=== PATIENT | male | born 1990 | race African-American/Black ===

== ENCOUNTER 2020-10-17 10:34 | Emergency (ER) | payer BC, SELFPAY ==
--- NOTE | ~2020-10-17 | XR_ITS ---
EXAMINATION: XR chest 1V portable DATE: 10/17/2020 10:57 INDICATION: COVID positive. 3 days of amputations. TECHNIQUE: frontal view of the chest was obtained. COMPARISON: None FINDINGS: The lungs are clear with no focal airspace opacities, pulmonary edema, pleural effusion or pneumothor ax. The cardiomediastinal silhouette is normal. Visualized bones and soft tissues are unremarkable. IMPRESSION: 1. No acute cardiopulmonary disease. Reviewed, dictated and finalized at location A. [facility]
--- NOTE | 2020-10-17 10:37 | ED.ARRPALP ---
HPI - Arrhythmia/Palpitations General Chief Complaint: Arrhythmia/Palpitations Stated Complaint: covid positive, heart palpitations, chest pain Time Seen by Provider: 10/17/20 10:37 History of Present Illness HPI narrative: Previously healthy 30 yo male preents to the ED for chest pain and palitations. He reports that he has not been feeling well for about 1 week. He had a positive COVID-19 test a few days ago. Now for the past few days he has been experiencing intermittent chest pressure and palpitations. The pressure is mild. Not exertional. The palpitations feel like racing. No SOB, dizziness, weakness. Related Data Allergies Allergy/AdvReac Type Severity Reaction Status Date / Time No Known Allergies Allergy Verified 10/17/20 10:43 Review of Systems Review of Systems: All systems reviewed & are unremarkable except as noted in HPI and below Constitutional: Constitutional: Denies chills, Denies fever(s) and Denies weakness ENT: Denies dizziness and Denies sore throat Cardiovascular: Cardiovascular: Reports chest pain and Reports rapid heart rate Respiratory: Respiratory: Reports chest congestion, Reports cough and Denies dyspnea Gastrointestinal: Gastrointestinal: Denies abdominal pain Musculoskeletal: Musculoskeletal: Reports myalgias Neurologic: Denies confusion, Denies numbness and Denies weakness [facility] Past Medical History Medical History (Updated 10/19/20 @ 14:46 by Chauncey Knott MD) Healthy adult male Social History Social History (Updated 10/19/20 @ 14:47 by Chauncey Knott MD) Smoking status: Never smoker Gender identity (if verbalized by the patient): Male Exam Const: General: healthy appearing, no acute distress and alert Orientation/consciousness: patient oriented x3 HENMT: Head: normal to inspection Neck: Neck: normal visual inspection and no lymphadenopathy Chest: Chest palpation & inspection: no tenderness Resp: Effort & Inspection: normal respiratory effort Auscultation: clear to auscultation bilaterally, no rales, no rhonchi and no wheezes Cardio: Jugular venous distension: no JVD Rate: regular rate Rhythm: regular rhythm Heart sounds: no murmurs GI: Inspection: non-distended GI Palp: Yes Soft to palpation and No Tenderness to palpation present (GI) Skin: General skin exam: normal color Neuro: General: patient oriented x3 and moves all extremities Speech: normal speech Extrem: General: no edema Psych: Appearance: well kempt Affect: Anxious affect present Course Vital Signs Vital signs: Vital Signs Temperature 36.9 C 10/17/20 10:39 Pulse Rate 100 10/17/20 10:39 Respiratory Rate 20 10/17/20 10:39 Blood Pressure 179/102 H 10/17/20 10:39 Pulse Oximetry 100 10/17/20 10:39 Temperature 36.9 C 10/17/20 10:39 Pulse Rate 76 10/17/20 11:46 Respiratory Rate 20 10/17/20 11:46 Blood Pressure 139/91 H 10/17/20 11:46 Pulse Oximetry 97 10/17/20 11:46 MDM - Arrhythmia/Palpitations Differential Diagnosis Differential diagnosis: Likely palpitations, anxiety and artial fibrillation Medical Records Attestation: I reviewed the patient's medical records. Lab Data Attestation: I reviewed the patient's lab results. Result diagrams: 10/17/20 10:53 10/17/20 10:53 Labs: Lab Results 10/17/20 10/17/20 Range/Units 10:53 10:53 WBC 6.3 (4.5-10.0) K/mm3 RBC 5.68 (4.6-6.20) M/mm3 Hgb 16.3 (14.0-18.0) g/dL Hct 49.2 (42.0-52.0) % MCV 86.6 (80-100) fl MCH 28.7 (26-34) pg MCHC 33.1 (32-36) g/dl RDW 12.6 (11.5-14.5) % Plt Count 216 (150-375) k/mm3 MPV 9.8 (7.4-10.4) fl Immature Gran % (Auto) 0.2 (0-0.5) % Neut % (Auto) 42.1 L (45.5-73.1) % Lymph % (Auto) 48.6 H (18.3-44.2) % Gila % (Auto) 7.8 (2.6-8.5) % Eos % (Auto) 1.1 (0-4.4) % Baso % (Auto) 0.2 (0.2-1.2) % Lymph # (Auto) 3.06 (0.9-3.2) K/mm3 Gila # (Auto) 0.5 (0.1-0.6) K/mm3 E
[2020-10-17 10:39] VITALS: BP 179/102; PULSE 100; RESP 20; TEMP 36.9; O2SAT 100
[2020-10-17 10:42] VITALS: BP 183/115; PULSE 87; RESP 20; O2SAT 100
--- NOTE | 2020-10-17 10:44 | ECG_ITS ---
Measurements Intervals [place] Rate: 97 P: 50 MD: 130 QRS: 99 QRSD: 102 T: 46 QT: 355 QTc: 452 Interpretive Statements SINUS RHYTHM BASELINE WANDER- I, II, III, V1, V4-V6 NORMAL ECG Electronically Signed On 10-20-2020 8:52:26 [employer]END[employer] by Adelfo Burnham D.O.
[2020-10-17 10:59] LABS: Basophils Percent Auto 0.2 % (0.2-1.2); Eosinophils Absolute Auto 0.1 K/mm3 (0-0.3); Eosinophils Percent Auto 1.1 % (0-4.4); Hematocrit 49.2 % (42.0-52.0); Hemoglobin 16.3 g/dL (14.0-18.0); Immature Granulocyte Absolute 0.01 K/mm3 (0.00-0.031); Immature Granulocyte Percent A 0.2 % (0-0.5); Lymphocytes Absolute Auto 3.06 K/mm3 (0.9-3.2); Lymphocytes Percent Auto 48.6 % (18.3-44.2); Mean Corpuscular HGB Conc 33.1 g/dl (32-36); Mean Corpuscular Hemoglobin 28.7 pg (26-34); Mean Corpuscular Volume 86.6 fl (80-100); Mean Platelet Volume 9.8 fl (7.4-10.4); Monocytes Absolute Auto 0.5 K/mm3 (0.1-0.6); Monocytes Percent Auto 7.8 % (2.6-8.5); Neutrophils Absolute Auto 2.7 K/mm3 (1.3-6.7); Neutrophils Percent Auto 42.1 % (45.5-73.1); Platelet Count Result 216 k/mm3 (150-375); Red Blood Count 5.68 M/mm3 (4.6-6.20); Red Cell Distribution Width 12.6 % (11.5-14.5); White Blood Count 6.3 K/mm3 (4.5-10.0)
[2020-10-17 11:05] VITALS: BP 139/91; PULSE 84; RESP 20; O2SAT 98
[2020-10-17 11:12] LABS: Anion Gap 9 mmol/L (8-16); Blood Urea Nitrogen 12 mg/dL (9-20); Calcium 9.4 mg/dL (8.4-10.2); Carbon Dioxide 30 mmol/L (22-30); Chloride 101 mmol/L (98-107); Estimated CRCL calculation 107 ml/min; Estimated Glomerular Filt Rate > 60; Glucose 87 mg/dL (75-110); Potassium 3.8 mmol/L (3.4-5.0); Sodium 140 mmol/L (137-145)
[2020-10-17 11:24] LABS: Troponin I < 0.012 ng/mL (0.000-0.034)
[2020-10-17 11:46] VITALS: BP 139/91; PULSE 76; RESP 20; O2SAT 97
== END 2020-10-17 11:47 | disposition home or self-care (01) ==
PROVIDERS: Emergency Provider Emergency Medicine; PCP Family Medicine
DX: R07.89 Other chest pain (principal); U07.1 COVID-19
CPT/HCPCS: 36415; 71045; 80048; 84484; 85025; 93005; 99283